=== PATIENT | female | born 1985 | race African-American/Black ===

== ENCOUNTER 2022-03-18 08:22 | Inpatient (IN) | payer OTHER ==
[2022-03-18 08:42] VITALS: BMI 34.0
[2022-03-18] MEDS ORDERED: ONDANSETRON 4 MG/2 ML VIAL IVPUSH ONE (09:21)
[2022-03-18] MEDS ORDERED: SODIUM CHLORIDE 0.9% 500 ML INFUS.BAG IV ONE (09:21)
[2022-03-18] MEDS ORDERED: morphine CARPU-JECT 4 MG/1 ML DISP.SYRIN IVPUSH ONE (09:22)
[2022-03-18] MEDS ORDERED: ONDANSETRON 4 MG/2 ML VIAL ONE (09:51)
[2022-03-18] MEDS ORDERED: morphine SULFATE 4 MG/ML VIAL ONE (09:51)
[2022-03-18 10:34] LABS: BASO % 0.7 % (0-2.0); HEMATOCRIT 34.2 % (32.4-45.2); HEMOGLOBIN 11.5 GM/dL (10.7-15.3); LYMPH % 19.9 % (8-40); MCH 30.9 pg (25.7-33.7); MCHC 33.7 g/dl (32.0-36.0); MEAN CELL VOLUME 91.8 fl (80-96); MEAN PLT VOLUME 8.6 fl (7.5-11.1); MONO % 6.7 % (3.8-10.2); NEUT % 71.7 % (42.8-82.8); PLATELET COUNT 301 10^3/uL (134-434); RBC 3.72 M/mm3 (3.60-5.2); RDW 15.1 % (11.6-15.6)
[2022-03-18 10:36] LABS: HCG,QUALITATIVE URINE Negative
[2022-03-18 10:37] LABS: EPI CELLS >36 /uL (0-25.1); HYALINE CASTS 3 /uL (0-3.1); PH,URINE 6.5 (5.0-8.0); URINE APPEARANCE CLOUDY; URINE BACTERIA 861 /uL (0-1359); URINE BILIRUBIN NEGATIVE (NEGATIVE); URINE COLOR YELLOW; URINE GLUCOSE (UA) NEGATIVE (NEGATIVE); URINE KETONE NEGATIVE (NEGATIVE); URINE LEUK ESTERASE NEGATIVE (NEGATIVE); URINE NITRITE NEGATIVE (NEGATIVE); URINE PROTEIN TRACE (NEGATIVE); URINE RBC 53 /uL (0-23.9); URINE WBC 16 /uL (0-25.8)
[2022-03-18 10:43] LABS: INR 1.08 (0.83-1.09); PROTHROMBIN TIME (PATIENT) 12.4 SEC (9.7-13.0)
[2022-03-18 11:04] LABS: ALBUMIN 3.4 g/dl (3.4-5.0); BLOOD UREA NITROGEN 11.8 mg/dL (7-18)
[2022-03-18 11:05] LABS: CALCIUM 8.6 mg/dL (8.5-10.1)
[2022-03-18 11:07] LABS: CREATININE 0.5 mg/dL (0.55-1.3)
[2022-03-18 11:09] LABS: BILIRUBIN,TOTAL 0.4 mg/dL (0.2-1); TOT PROT 7.6 g/dl (6.4-8.2)
[2022-03-18] MEDS ORDERED: KETOROLAC TROMETHAMINE 30 MG/1 ML VIAL IVPB ONE (11:24)
[2022-03-18] MEDS ORDERED: KETOROLAC TROMETHAMINE 30 MG/1 ML VIAL ONE (11:49)
[2022-03-18] MEDS ORDERED: AMPICILLIN NA/SULBACTAM NA 3 GM in SODIUM CHLORIDE 100 ML IVPB ONE (20:08)
[2022-03-19] MEDS ORDERED: ACETAMINOPHEN 325 MG TABLET (FP) ONE ×2 (00:03→19:10)
[2022-03-19] MEDS: VANCOMYCIN/WATER 1250 MG 1,250 MG/250 ML BAG IVPB SCH ×2 (00:21→13:16)
[2022-03-19] MEDS: ACETAMINOPHEN 325 MG TABLET (FP) PO PRN ×2 (00:21→18:41)
[2022-03-19] MEDS ORDERED: CEFTRIAXONE 1 GM in DEXTROSE 5%-WATER - 50 ML IVPB ONE (02:00)
[2022-03-19] MEDS: AMPICILLIN NA/SULBACTAM NA 3 GM in SODIUM CHLORIDE 100 ML IVPB SCH ×4 (04:23→21:09)
[2022-03-19] MEDS ORDERED: ONDANSETRON *ODT* 4 MG TABLET ONE (07:51)
[2022-03-19 08:15] LABS: BASO % 0.5 % (0-2.0); EOS % 1.2 % (0-4.5); HEMATOCRIT 29.4 % (32.4-45.2); HEMOGLOBIN 9.9 GM/dL (10.7-15.3); LYMPH % 15.8 % (8-40); MCH 30.8 pg (25.7-33.7); MCHC 33.6 g/dl (32.0-36.0); MEAN CELL VOLUME 91.6 fl (80-96); MEAN PLT VOLUME 8.4 fl (7.5-11.1); MONO % 9.1 % (3.8-10.2); NEUT % 73.4 % (42.8-82.8); PLATELET COUNT 264 10^3/uL (134-434); RDW 15.2 % (11.6-15.6); WHITE BLOOD COUNT 10.3 K/mm3 (4.0-10.0)
[2022-03-19 08:18] LABS: BLOOD UREA NITROGEN 10.8 mg/dL (7-18); CALCIUM 7.9 mg/dL (8.5-10.1); MAGNESIUM 2.1 mg/dL (1.8-2.4)
[2022-03-19 08:21] LABS: CREATININE 0.4 mg/dL (0.55-1.3); PHOSPHOROUS 4.3 mg/dL (2.5-4.9)
[2022-03-19 08:22] LABS: BILIRUBIN,TOTAL 0.4 mg/dL (0.2-1)
[2022-03-19 08:35] LABS: ALBUMIN 2.6 g/dl (3.4-5.0)
[2022-03-19] MEDS ORDERED: ENOXAPARIN NA (PORCINE) 40 MG/0.4 ML DISP.SYRIN SQ SCH (10:00)
[2022-03-19] MEDS ORDERED: VANCOMYCIN/WATER 1250 MG 1,250 MG/250 ML BAG IVPB ONE (13:09)
[2022-03-20] MEDS: VANCOMYCIN/WATER 1250 MG 1,250 MG/250 ML BAG IVPB SCH (00:39)
[2022-03-20] MEDS: AMPICILLIN NA/SULBACTAM NA 3 GM in SODIUM CHLORIDE 100 ML IVPB SCH ×4 (03:15→21:28)
[2022-03-20] MEDS: ACETAMINOPHEN 325 MG TABLET (FP) PO PRN (04:21)
[2022-03-20] MEDS ORDERED: SODIUM CHLORIDE 100 ML IVPB ONE ×3 (10:07→21:11)
[2022-03-20] MEDS ORDERED: AMPICILLIN NA/SULBACTAM NA 3 GM VIAL ONE ×3 (10:07→21:10)
[2022-03-20 11:48] LABS: BASO % 0.3 % (0-2.0); EOS % 1.7 % (0-4.5); HEMATOCRIT 27.6 % (32.4-45.2); HEMOGLOBIN 9.2 GM/dL (10.7-15.3); LYMPH % 18.8 % (8-40); MCH 30.7 pg (25.7-33.7); MCHC 33.5 g/dl (32.0-36.0); MEAN CELL VOLUME 91.8 fl (80-96); MEAN PLT VOLUME 8.2 fl (7.5-11.1); NEUT % 69.2 % (42.8-82.8); PLATELET COUNT 262 10^3/uL (134-434); RBC 3.01 M/mm3 (3.60-5.2); RDW 14.9 % (11.6-15.6); WHITE BLOOD COUNT 9.4 K/mm3 (4.0-10.0)
[2022-03-20 12:07] LABS: BLOOD UREA NITROGEN 9.7 mg/dL (7-18); CALCIUM 8.1 mg/dL (8.5-10.1)
[2022-03-20 12:10] LABS: CREATININE 0.4 mg/dL (0.55-1.3)
[2022-03-20] MEDS: VANCOMYCIN/WATER 1,250 MG/250 ML BAG IVPB SCH (12:44)
[2022-03-20] MEDS ORDERED: VANCOMYCIN/WATER 1250 MG 1,250 MG/250 ML BAG IVPB SCH (13:00)
[2022-03-20] MEDS ORDERED: PROPOFOL 20 ML ONE ×3 (16:58→17:58)
[2022-03-20] MEDS ORDERED: MIDAZOLAM HCL 2 MG/2 ML SINGLE DOSE VIAL ONE (16:58)
[2022-03-20] MEDS ORDERED: SUCCINYLCHOLINE CHLORIDE 200 MG/10 ML SYRINGE ONE (16:58)
[2022-03-20] MEDS ORDERED: METHYLENE BLUE 50 MG/10 ML AMPUL ONE (17:08)
[2022-03-20] MEDS ORDERED: METHYLENE BLUE 1% 10 MG/1 ML VIAL NR ONE (17:37)
[2022-03-20] MEDS ORDERED: BUPIVACAINE HCL/PF 0.5% (5 MG/ML) 30 ML VIAL IJ ONE (17:38)
[2022-03-20] MEDS ORDERED: ONDANSETRON 4 MG/2 ML VIAL IVPUSH PRN ×2 (18:20→18:40)
[2022-03-20] MEDS ORDERED: LACTATED RINGERS SOLUTION 1,000 ML IV SCH (18:30)
[2022-03-20] MEDS: oxyCODONE HCL 5 MG TABLET PO PRN ×2 (21:26→23:33)
[2022-03-20] MEDS: LACTATED RINGERS SOLUTION 1,000 ML IV SCH (21:28)
[2022-03-21] MEDS: VANCOMYCIN/WATER 1250 MG 1,250 MG/250 ML BAG IVPB SCH ×2 (01:09→14:35)
[2022-03-21] MEDS ORDERED: SODIUM CHLORIDE 100 ML IVPB ONE ×4 (03:11→21:21)
[2022-03-21] MEDS ORDERED: AMPICILLIN NA/SULBACTAM NA 3 GM VIAL ONE ×4 (03:11→21:21)
[2022-03-21] MEDS: AMPICILLIN NA/SULBACTAM NA 3 GM in SODIUM CHLORIDE 100 ML IVPB SCH ×4 (03:18→22:07)
[2022-03-21] MEDS ORDERED: KETOROLAC TROMETHAMINE 30 MG/1 ML VIAL IVPUSH PRN (04:00)
[2022-03-21] MEDS: oxyCODONE HCL 5 MG TABLET PO PRN ×4 (04:05→23:08)
[2022-03-21] MEDS: ACETAMINOPHEN 500 MG TABLET (FP) PO SCH ×3 (05:24→18:24)
[2022-03-22] MEDS: ACETAMINOPHEN 500 MG TABLET (FP) PO SCH ×4 (00:53→21:45)
[2022-03-22] MEDS: LACTATED RINGERS SOLUTION 1,000 ML IV SCH ×2 (00:54→21:47)
[2022-03-22] MEDS ORDERED: SODIUM CHLORIDE 100 ML IVPB ONE ×4 (02:09→21:36)
[2022-03-22] MEDS ORDERED: AMPICILLIN NA/SULBACTAM NA 3 GM VIAL ONE ×4 (02:09→21:35)
[2022-03-22] MEDS: VANCOMYCIN/WATER 1250 MG 1,250 MG/250 ML BAG IVPB SCH ×2 (02:31→16:24)
[2022-03-22] MEDS: AMPICILLIN NA/SULBACTAM NA 3 GM in SODIUM CHLORIDE 100 ML IVPB SCH ×4 (03:11→21:47)
[2022-03-22] MEDS: ENOXAPARIN NA (PORCINE) 40 MG/0.4 ML DISP.SYRIN SQ SCH (10:26)
[2022-03-22] MEDS: oxyCODONE HCL 5 MG TABLET PO PRN ×2 (10:27→16:11)
[2022-03-22 12:14] LABS: BASO % 0.4 % (0-2.0); EOS % 1.1 % (0-4.5); HEMATOCRIT 24.7 % (32.4-45.2); HEMOGLOBIN 8.3 GM/dL (10.7-15.3); MCH 30.2 pg (25.7-33.7); MCHC 33.6 g/dl (32.0-36.0); MEAN PLT VOLUME 7.3 fl (7.5-11.1); MONO % 7.3 % (3.8-10.2); NEUT % 76.2 % (42.8-82.8); PLATELET COUNT 262 10^3/uL (134-434); RBC 2.75 M/mm3 (3.60-5.2); RDW 14.9 % (11.6-15.6); WHITE BLOOD COUNT 6.3 K/mm3 (4.0-10.0)
[2022-03-22 13:09] LABS: CALCIUM 7.7 mg/dL (8.5-10.1)
[2022-03-22 13:10] LABS: BLOOD UREA NITROGEN 11.7 mg/dL (7-18)
[2022-03-22 13:13] LABS: CREATININE 0.5 mg/dL (0.55-1.3)
[2022-03-22] MEDS ORDERED: POTASSIUM CHLORIDE TABS 20 MEQ TABLET.ER (FP) PO ONE (15:48)
[2022-03-23] MEDS: ACETAMINOPHEN 500 MG TABLET (FP) PO SCH (02:03)
[2022-03-23] MEDS ORDERED: AMPICILLIN NA/SULBACTAM NA 3 GM VIAL ONE ×2 (02:48→10:27)
[2022-03-23] MEDS ORDERED: SODIUM CHLORIDE 100 ML IVPB ONE ×2 (02:48→10:28)
[2022-03-23] MEDS: AMPICILLIN NA/SULBACTAM NA 3 GM in SODIUM CHLORIDE 100 ML IVPB SCH ×2 (02:51→12:02)
[2022-03-23] MEDS: oxyCODONE HCL 5 MG TABLET PO PRN ×2 (08:49→17:14)
[2022-03-23] MEDS: ENOXAPARIN NA (PORCINE) 40 MG/0.4 ML DISP.SYRIN SQ SCH (11:01)
[2022-03-23] MEDS ORDERED: AMOX TR/POT CLAV 875MG/125MG TABLETS (FP) PO ONE (12:30)
[2022-03-23] MEDS ORDERED: POTASSIUM CHLORIDE TABS 20 MEQ TABLET.ER (FP) PO ONE (18:13)
[2022-03-23] MEDS: AMOX TR/POT CLAV 875MG/125MG TABLETS (FP) PO SCH (19:10)
[2022-03-24] MEDS: oxyCODONE HCL 5 MG TABLET PO PRN ×2 (03:48→10:09)
[2022-03-24] MEDS ORDERED: BISACODYL 5 MG TABLET.DR (FP) PO ONE (07:56)
[2022-03-24] MEDS: ENOXAPARIN NA (PORCINE) 40 MG/0.4 ML DISP.SYRIN SQ SCH (10:02)
[2022-03-24] MEDS: AMOX TR/POT CLAV 875MG/125MG TABLETS (FP) PO SCH (10:03)
[2022-03-24 10:55] LABS: HEMATOCRIT 31.6 % (32.4-45.2); HEMOGLOBIN 10.4 GM/dL (10.7-15.3); MCH 30.1 pg (25.7-33.7); MEAN CELL VOLUME 91.2 fl (80-96); MEAN PLT VOLUME 7.9 fl (7.5-11.1); PLATELET COUNT 347 10^3/uL (134-434); RBC 3.47 M/mm3 (3.60-5.2); RDW 15.2 % (11.6-15.6); WHITE BLOOD COUNT 6.2 K/mm3 (4.0-10.0)
[2022-03-24 11:21] LABS: CALCIUM 8.8 mg/dL (8.5-10.1)
[2022-03-24 11:22] LABS: BLOOD UREA NITROGEN 7.9 mg/dL (7-18)
[2022-03-24 11:25] LABS: CREATININE 0.6 mg/dL (0.55-1.3)
[2022-03-24 14:26] VITALS: RESP 14
[2022-03-24 14:27] VITALS: BP 108/40; PULSE 76; TEMP 98.1
== END 2022-03-24 12:30 | disposition home health service (06) | DRG 383 ==
LOC: JER 08:22 → JERBED 16:48 → J5S 03-19 21:43
PROVIDERS: ADMIT Internal Medicine; ATTEND Internal Medicine
PROC: 0JB90ZZ Excision of Buttock Subcutaneous Tissue and Fascia, Open Approach (ICD-10-PCS; principal; 2022-03-20 14:00)
DX: L05.01 Pilonidal cyst with abscess (principal); F12.90 Cannabis use, unspecified, uncomplicated; R42 Dizziness and giddiness; R11.0 Nausea; F17.210 Nicotine dependence, cigarettes, uncomplicated; E66.9 Obesity, unspecified; Z68.34 Body mass index [BMI] 34.0-34.9, adult
CPT/HCPCS: 36415; 71046-TC-FY; 72193-TC; 80048; 80053; 81003; 83735; 84100; 84703; 85025; 85027; 85610; 85730; 86850; 86900; 86901; 87086; 88304-TC; 93005; 93010; 94760; 97116-GP; 97162-GP; 99285-25; C9803-CS; Q9967; Q9968; U0003; U0005

== ENCOUNTER 2023-02-23 21:58 | Inpatient (IN) | payer OTHER ==
[2023-02-23] MEDS ORDERED: ACETAMINOPHEN 1000 MG/100 ML BAG IVPB ONE (22:59)
[2023-02-23] MEDS ORDERED: morphine CARPU-JECT 4 MG/1 ML DISP.SYRIN IVPUSH ONE (23:13)
[2023-02-23] MEDS ORDERED: morphine SULFATE 4 MG/ML VIAL ONE (23:16)
[2023-02-23 23:42] LABS: BASO % 1.1 % (0-2.0); EOS % 0.8 % (0-4.5); HEMATOCRIT 32.4 % (32.4-45.2); HEMOGLOBIN 10.6 GM/dL (10.7-15.3); LYMPH % 19.6 % (8-40); MCH 28.7 pg (25.7-33.7); MCHC 32.7 g/dl (32.0-36.0); MEAN CELL VOLUME 87.8 fl (80-96); MEAN PLT VOLUME 7.8 fl (7.5-11.1); MONO % 8.9 % (3.8-10.2); NEUT % 69.6 % (42.8-82.8); PLATELET COUNT 301 10^3/uL (134-434); RBC 3.69 M/mm3 (3.60-5.2)
[2023-02-24 00:03] LABS: CALCIUM 8.8 mg/dL (8.5-10.1)
[2023-02-24 00:04] LABS: ALBUMIN 3.3 g/dl (3.4-5.0); BLOOD UREA NITROGEN 14.4 mg/dL (7-18)
[2023-02-24 00:06] LABS: CREATININE 0.7 mg/dL (0.55-1.3)
[2023-02-24 00:08] LABS: BILIRUBIN,TOTAL 0.5 mg/dL (0.2-1); TOT PROT 7.3 g/dl (6.4-8.2)
[2023-02-24 01:04] LABS: ERYTHROCYTE SEDIMENTATION RATE 38 mm/hr (0-20)
[2023-02-24] MEDS ORDERED: PIPERACILLIN/TAZOB 4.5 GM 4.5 GM in DEXTROSE 5%-WATER 100 ML IVPB ONE (01:44)
[2023-02-24] MEDS ORDERED: VANCOMYCIN 1 GM in D5W (PRE-DOCKED) 1,000 MG/250 ML (RESTRICTED TO ID ONLY IVPB ONE (01:44)
[2023-02-24] MEDS ORDERED: VANCOMYCIN/WATER FOR INJ (PEG) 1,000 MG/200 ML BAG IVPB ONE (01:49)
[2023-02-24] MEDS ORDERED: PIPERACILLIN/TAZOB 4.5 GM 4.5 GM/100 ML BAG IVPB ONE (01:49)
[2023-02-24] MEDS ORDERED: morphine CARPU-JECT 4 MG/1 ML DISP.SYRIN IVPUSH ONE ×2 (02:02→04:34)
[2023-02-24] MEDS ORDERED: morphine SULFATE 4 MG/ML VIAL ONE ×2 (02:03→04:35)
[2023-02-24] MEDS ORDERED: CLINDAMYCIN 600MG PREMIX IVPB 600 MG/50 ML BAG IVPB ONE ×2 (02:43→03:09)
[2023-02-24] MEDS ORDERED: ACETAMINOPHEN 1000 MG/100 ML BAG IVPB PRN ×3 (05:27→12:48)
[2023-02-24] MEDS: SODIUM CHLORIDE 3,000 ML IV SCH ×2 (06:31→21:05)
[2023-02-24] MEDS ORDERED: VANCOMYCIN 1,000 MG in DEXTROSE 5%-WATER - 250 ML IVPB SCH (07:00)
[2023-02-24] MEDS ORDERED: HYDROmorphone HCl 2 MG/ML VIAL IVPB PRN ×2 (08:26→13:35)
[2023-02-24 09:25] VITALS: BMI 40.8
[2023-02-24] MEDS ORDERED: HYDROmorphone HCl 2 MG/ML VIAL IVPB ONE (09:45)
[2023-02-24 09:57] LABS: BASO % 0.5 % (0-2.0); EOS % 0.9 % (0-4.5); HEMATOCRIT 33.1 % (32.4-45.2); HEMOGLOBIN 10.6 GM/dL (10.7-15.3); LYMPH % 14.9 % (8-40); MCH 29.1 pg (25.7-33.7); MCHC 32.1 g/dl (32.0-36.0); MEAN CELL VOLUME 90.5 fl (80-96); MEAN PLT VOLUME 8.9 fl (7.5-11.1); NEUT % 74.7 % (42.8-82.8); PLATELET COUNT 300 10^3/uL (134-434); RBC 3.66 M/mm3 (3.60-5.2); WHITE BLOOD COUNT 11.9 K/mm3 (4.0-10.0)
[2023-02-24] MEDS ORDERED: PIPERACILLIN/TAZOB 3.375 GM 3.375 GM in DEXTROSE 5%-WATER - 50 ML IVPB SCH (10:00)
[2023-02-24 10:02] LABS: INR 1.13 (0.83-1.09); PROTHROMBIN TIME (PATIENT) 13.1 SEC (9.7-13.0)
[2023-02-24 10:10] LABS: POTASSIUM 4.1 mmol/L (3.5-5.1)
[2023-02-24 10:12] LABS: CALCIUM 8.8 mg/dL (8.5-10.1)
[2023-02-24 10:13] LABS: BLOOD UREA NITROGEN 10.5 mg/dL (7-18)
[2023-02-24 10:16] LABS: CREATININE 0.6 mg/dL (0.55-1.3)
[2023-02-24] MEDS ORDERED: HYDROmorphone HCl 2 MG/ML VIAL IVPUSH PRN (12:47)
[2023-02-24] MEDS: VANCOMYCIN/WATER 1250 MG 1,250 MG/250 ML BAG IVPB SCH (13:32)
[2023-02-24] MEDS ORDERED: ONDANSETRON 4 MG/2 ML VIAL IVPUSH ONE (14:15)
[2023-02-24 17:20] LABS: EPI CELLS 10 /uL (0-25.1); HYALINE CASTS 0 /uL (0-3.1); URINE APPEARANCE CLEAR; URINE BACTERIA 59 /uL (0-1359); URINE BILIRUBIN NEGATIVE (NEGATIVE); URINE COLOR YELLOW; URINE GLUCOSE (UA) NEGATIVE (NEGATIVE); URINE KETONE 1+ (NEGATIVE); URINE LEUK ESTERASE NEGATIVE (NEGATIVE); URINE NITRITE NEGATIVE (NEGATIVE); URINE PROTEIN TRACE (NEGATIVE); URINE RBC 44 /uL (0-23.9); URINE WBC 4 /uL (0-25.8)
[2023-02-24] MEDS: PIPERACILLIN/TAZOB 3.375 GM 3.375 GM in DEXTROSE 5%-WATER - 50 ML IVPB SCH (17:36)
[2023-02-24] MEDS ORDERED: DOCUSATE SODIUM 100 MG CAPSULE (FP) PO SCH (22:00)
[2023-02-25] MEDS: VANCOMYCIN/WATER 1250 MG 1,250 MG/250 ML BAG IVPB SCH ×2 (01:14→13:32)
[2023-02-25] MEDS ORDERED: VANCOMYCIN/WATER FOR INJ (PEG) 1,000 MG/200 ML BAG IVPB SCH (02:00)
[2023-02-25] MEDS ORDERED: VANCOMYCIN/WATER FOR INJ (PEG) 1,000 MG/200 ML BAG IVPB ONE (02:00)
[2023-02-25] MEDS: PIPERACILLIN/TAZOB 3.375 GM 3.375 GM in DEXTROSE 5%-WATER - 50 ML IVPB SCH ×2 (04:00→17:53)
[2023-02-25] MEDS: SODIUM CHLORIDE 3,000 ML IV SCH (08:35)
[2023-02-25] MEDS ORDERED: MIDAZOLAM HCL 2 MG/2 ML SINGLE DOSE VIAL ONE (09:29)
[2023-02-25] MEDS ORDERED: ONDANSETRON 4 MG/2 ML VIAL ONE (09:29)
[2023-02-25] MEDS ORDERED: PROPOFOL 20 ML ONE ×2 (09:29→09:52)
[2023-02-25] MEDS ORDERED: LIDOCAINE HCL/PF 2% SDV 5ML VIAL ONE (09:29)
[2023-02-25] MEDS ORDERED: DEXAMETHASONE SOD PHOSPHATE 4 MG/1 ML VIAL ONE (09:29)
[2023-02-25 09:32] LABS: BASO % 0.3 % (0-2.0); EOS % 0.7 % (0-4.5); HEMATOCRIT 31.3 % (32.4-45.2); HEMOGLOBIN 10.1 GM/dL (10.7-15.3); LYMPH % 13.6 % (8-40); MCH 29.2 pg (25.7-33.7); MCHC 32.1 g/dl (32.0-36.0); MEAN CELL VOLUME 90.8 fl (80-96); MEAN PLT VOLUME 8.6 fl (7.5-11.1); MONO % 7.1 % (3.8-10.2); NEUT % 78.3 % (42.8-82.8); PLATELET COUNT 277 10^3/uL (134-434); RBC 3.45 M/mm3 (3.60-5.2); RDW 16.5 % (11.6-15.6); WHITE BLOOD COUNT 13.1 K/mm3 (4.0-10.0)
[2023-02-25 09:35] LABS: INR 1.22 (0.83-1.09); PROTHROMBIN TIME (PATIENT) 14.1 SEC (9.7-13.0)
[2023-02-25 09:52] LABS: POTASSIUM 3.7 mmol/L (3.5-5.1)
[2023-02-25 09:57] LABS: CALCIUM 8.5 mg/dL (8.5-10.1)
[2023-02-25 09:58] LABS: ALBUMIN 3.1 g/dl (3.4-5.0); BLOOD UREA NITROGEN 6.1 mg/dL (7-18)
[2023-02-25 10:01] LABS: CREATININE 0.6 mg/dL (0.55-1.3)
[2023-02-25 10:03] LABS: BILIRUBIN,TOTAL 0.6 mg/dL (0.2-1); TOT PROT 6.8 g/dl (6.4-8.2)
[2023-02-25] MEDS ORDERED: ACETAMINOPHEN 1000 MG/100 ML BAG IVPB PRN (10:44)
[2023-02-25] MEDS ORDERED: SODIUM CHLORIDE 3,000 ML IV SCH (10:44)
[2023-02-25] MEDS ORDERED: LACTATED RINGERS SOLUTION 1,000 ML IV SCH (11:00)
[2023-02-25 14:28] VITALS: RESP 18
[2023-02-25] MEDS: oxyCODONE HCL 5 MG TABLET PO PRN (17:53)
[2023-02-25] MEDS: DOCUSATE SODIUM 100 MG CAPSULE (FP) PO SCH (21:03)
[2023-02-26] MEDS: oxyCODONE HCL 5 MG TABLET PO PRN ×4 (00:56→18:19)
[2023-02-26] MEDS: PIPERACILLIN/TAZOB 3.375 GM 3.375 GM in DEXTROSE 5%-WATER - 50 ML IVPB SCH ×3 (01:00→18:17)
[2023-02-26] MEDS: VANCOMYCIN/WATER 1250 MG 1,250 MG/250 ML BAG IVPB SCH ×2 (01:50→15:19)
[2023-02-26] MEDS ORDERED: VANCOMYCIN/WATER FOR INJ (PEG) 1,000 MG/200 ML BAG IVPB SCH (02:00)
[2023-02-26] MEDS: DOCUSATE SODIUM 100 MG CAPSULE (FP) PO SCH ×2 (09:33→21:10)
[2023-02-26] MEDS: ENOXAPARIN NA (PORCINE) 40 MG/0.4 ML DISP.SYRIN SQ SCH (09:33)
[2023-02-26 12:20] LABS: BASO % 0.9 % (0-2.0); EOS % 0.9 % (0-4.5); HEMOGLOBIN 10.3 GM/dL (10.7-15.3); MCH 29.1 pg (25.7-33.7); MCHC 32.1 g/dl (32.0-36.0); MEAN CELL VOLUME 90.6 fl (80-96); MEAN PLT VOLUME 8.8 fl (7.5-11.1); MONO % 6.1 % (3.8-10.2); NEUT % 77.1 % (42.8-82.8); PLATELET COUNT 297 10^3/uL (134-434); RBC 3.53 M/mm3 (3.60-5.2); RDW 16.5 % (11.6-15.6); WHITE BLOOD COUNT 12.4 K/mm3 (4.0-10.0)
[2023-02-26 12:27] LABS: INR 1.17 (0.83-1.09); PROTHROMBIN TIME (PATIENT) 13.6 SEC (9.7-13.0)
[2023-02-26 12:41] LABS: POTASSIUM 3.7 mmol/L (3.5-5.1)
[2023-02-26 12:44] LABS: CALCIUM 9.1 mg/dL (8.5-10.1)
[2023-02-26 12:45] LABS: ALBUMIN 3.2 g/dl (3.4-5.0); BLOOD UREA NITROGEN 7.4 mg/dL (7-18); MAGNESIUM 2.2 mg/dL (1.8-2.4)
[2023-02-26 12:48] LABS: CREATININE 0.7 mg/dL (0.55-1.3)
[2023-02-26 12:50] LABS: BILIRUBIN,TOTAL 0.4 mg/dL (0.2-1); TOT PROT 7.3 g/dl (6.4-8.2)
[2023-02-26] MEDS ORDERED: ACETAMINOPHEN 500 MG TABLET (FP) PO PRN (16:03)
[2023-02-27] MEDS: PIPERACILLIN/TAZOB 3.375 GM 3.375 GM in DEXTROSE 5%-WATER - 50 ML IVPB SCH (03:13)
[2023-02-27] MEDS: oxyCODONE HCL 5 MG TABLET PO PRN ×2 (03:49→10:30)
[2023-02-27 08:59] LABS: BASO % 0.9 % (0-2.0); EOS % 3.2 % (0-4.5); HEMATOCRIT 32.5 % (32.4-45.2); HEMOGLOBIN 10.4 GM/dL (10.7-15.3); LYMPH % 36.3 % (8-40); MCH 28.9 pg (25.7-33.7); MCHC 31.9 g/dl (32.0-36.0); MEAN CELL VOLUME 90.7 fl (80-96); MEAN PLT VOLUME 8.7 fl (7.5-11.1); MONO % 7.7 % (3.8-10.2); NEUT % 51.9 % (42.8-82.8); PLATELET COUNT 329 10^3/uL (134-434); RBC 3.59 M/mm3 (3.60-5.2); RDW 16.4 % (11.6-15.6); WHITE BLOOD COUNT 7.4 K/mm3 (4.0-10.0)
[2023-02-27] MEDS: ENOXAPARIN NA (PORCINE) 40 MG/0.4 ML DISP.SYRIN SQ SCH (09:03)
[2023-02-27] MEDS: DOCUSATE SODIUM 100 MG CAPSULE (FP) PO SCH ×2 (09:04→22:06)
[2023-02-27 09:05] LABS: INR 1.1 (0.83-1.09); PROTHROMBIN TIME (PATIENT) 12.7 SEC (9.7-13.0)
[2023-02-27 09:16] LABS: POTASSIUM 4.2 mmol/L (3.5-5.1)
[2023-02-27 09:20] LABS: ALBUMIN 3.1 g/dl (3.4-5.0); MAGNESIUM 1.8 mg/dL (1.8-2.4)
[2023-02-27 09:21] LABS: BLOOD UREA NITROGEN 9.5 mg/dL (7-18)
[2023-02-27 09:23] LABS: CREATININE 0.7 mg/dL (0.55-1.3)
[2023-02-27 09:25] LABS: BILIRUBIN,TOTAL 0.2 mg/dL (0.2-1); TOT PROT 7.2 g/dl (6.4-8.2)
[2023-02-27] MEDS ORDERED: oxyCODONE HCL 5 MG TABLET PO ONE (11:00)
[2023-02-27] MEDS: CEFTRIAXONE 1 GM in DEXTROSE 5%-WATER - 50 ML IVPB SCH (13:08)
[2023-02-27] MEDS: LACTOBACILLUS ACIDOPHILUS 1 TABLET PO SCH (22:06)
[2023-02-28] MEDS: oxyCODONE HCL 5 MG TABLET PO PRN ×3 (02:24→19:54)
[2023-02-28] MEDS: CEFTRIAXONE 1 GM in DEXTROSE 5%-WATER - 50 ML IVPB SCH (10:21)
[2023-02-28] MEDS: ENOXAPARIN NA (PORCINE) 40 MG/0.4 ML DISP.SYRIN SQ SCH (10:21)
[2023-02-28] MEDS: ACETAMINOPHEN 325 MG TABLET (FP) PO SCH ×2 (18:43→23:18)
[2023-02-28] MEDS: LACTOBACILLUS ACIDOPHILUS 1 TABLET PO SCH (21:14)
[2023-03-01] MEDS: oxyCODONE HCL 5 MG TABLET PO PRN ×2 (01:03→09:00)
[2023-03-01] MEDS: ACETAMINOPHEN 325 MG TABLET (FP) PO SCH (05:36)
[2023-03-01] MEDS ORDERED: AMOX TR/POT CLAV 875MG/125MG TABLETS (FP) PO SCH (08:00)
[2023-03-01] MEDS: ENOXAPARIN NA (PORCINE) 40 MG/0.4 ML DISP.SYRIN SQ SCH (09:00)
[2023-03-01 11:08] VITALS: BP 118/78; PULSE 66; TEMP 97.9
== END 2023-03-01 12:48 | disposition home or self-care (01) | DRG 364 ==
LOC: JER 21:58 → JERBED 02-24 04:38 → J6S 02-24 07:06
PROVIDERS: ADMIT Internal Medicine; ATTEND Internal Medicine
PROC: 0J990ZZ Drainage of Buttock Subcutaneous Tissue and Fascia, Open Approach (ICD-10-PCS; principal; 2023-02-25 10:00)
DX: L05.01 Pilonidal cyst with abscess (principal); Z68.41 Body mass index [BMI] 40.0-44.9, adult; E66.01 Morbid (severe) obesity due to excess calories; D72.829 Elevated white blood cell count, unspecified; K52.1 Toxic gastroenteritis and colitis
CPT/HCPCS: 36415; 71045-TC-FY; 72193-TC; 80048; 80053; 81003; 83036; 83735; 84703; 85025; 85610; 85651; 86140; 86850; 86900; 86901; 87040; 87070; 87081; 87086; 87205; 93005; 93010; 94010; 94760; 99285-25; Q9967

== ENCOUNTER 2023-09-19 04:53 | Emergency (ER) | payer OTHER ==
[2023-09-19 05:22] VITALS: BP 139/65; PULSE 69; RESP 18; TEMP 98.1; BMI 40.6
[2023-09-19] MEDS ORDERED: LIDOCAINE 5% TOPICAL PATCH TP ONE (05:28)
[2023-09-19] MEDS ORDERED: KETOROLAC TROMETHAMINE 30 MG/1 ML VIAL IM ONE (05:28)
[2023-09-19] MEDS ORDERED: ACETAMINOPHEN 500 MG TABLET (FP) PO ONE (05:28)
[2023-09-19] MEDS ORDERED: diazePAM 5 MG TABLET PO ONE (05:29)
[2023-09-19] MEDS ORDERED: DEXAMETHASONE 4 MG TABLET (FP) PO ONE (05:37)
[2023-09-19] MEDS ORDERED: diazePAM 5 MG TABLET ONE (05:37)
[2023-09-19] MEDS ORDERED: KETOROLAC TROMETHAMINE 30 MG/1 ML VIAL ONE (05:38)
[2023-09-19] MEDS ORDERED: DEXAMETHASONE 4 MG TABLET (FP) ONE (05:38)
[2023-09-19] MEDS ORDERED: ACETAMINOPHEN 325 MG TABLET (FP) ONE (05:38)
[2023-09-19] MEDS ORDERED: LIDOCAINE 4% PATCH TP ONE (05:46)
[2023-09-19] MEDS: DEXAMETHASONE 4 MG TABLET (FP) PO ONE ×2 (05:57→06:30)
[2023-09-19 08:28] LABS: EPI CELLS 29 /uL (0-25.1); HYALINE CASTS 0 /uL (0-3.1); PH,URINE 7.5 (5.0-8.0); URINE APPEARANCE CLEAR; URINE BACTERIA 768 /uL (0-1359); URINE BILIRUBIN NEGATIVE (NEGATIVE); URINE COLOR YELLOW; URINE GLUCOSE (UA) NEGATIVE (NEGATIVE); URINE KETONE NEGATIVE (NEGATIVE); URINE LEUK ESTERASE NEGATIVE (NEGATIVE); URINE NITRITE NEGATIVE (NEGATIVE); URINE PROTEIN NEGATIVE (NEGATIVE); URINE RBC 18 /uL (0-23.9); URINE UROBILINOGEN 0.2 mg/dL (0.2-1.0); URINE WBC 28 /uL (0-25.8)
[2023-09-19 14:43] LABS: YEAST NONE SEEN (NEGATIVE)
[2023-09-19] MEDS ORDERED: LIDOCAINE PATCH REMOVAL MC SCH (22:00)
== END 2023-09-19 09:11 | disposition home or self-care (01) ==
LOC: JER 04:53
PROC: 3E0233Z Introduction of Anti-inflammatory into Muscle, Percutaneous Approach (ICD-10-PCS; principal; 2023-09-19)
DX: S39.012A Strain of muscle, fascia and tendon of lower back, initial encounter (principal); M54.50 Low back pain, unspecified; X50.0XXA Overexertion from strenuous movement or load, initial encounter
CPT/HCPCS: 81003; 84703; 87086; 99284-25